=== PATIENT | female | born 1965 | race Caucasian/White ===

== ENCOUNTER → 2016-08-04 | Outpatient (CLI) | payer OTHER ==
[~2016-08-04] MED LIST: ALLEGRA180 MG PO; LASIX40 MG PO; NASACORT16.9 ML NOSE; NORCO 5-325 TA1 EACH PO; NORVASC10 MG PO; OMEGA RED PO; PREVACID15 MG PO
== END | disposition disaster alternative care site (69) ==
LOC: GRAD 08:06
DX: M54.12 Radiculopathy, cervical region (principal); M54.2 Cervicalgia; M25.70 Osteophyte, unspecified joint; M48.02 Spinal stenosis, cervical region; M50.222 Other cervical disc displacement at C5-C6 level

== ENCOUNTER 2016-09-29 06:07 | Day surgery (SDC) | payer OTHER ==
[~2016-09-29] VITALS: Ht 157.5 cm; Wt 99.7 kg
--- NOTE | ~2016-09-29 | OR ---
PATIENT'S NAME: JAMILAH BIRCH [facility] AGE: 50 Y [address] ROOM: [address] [address] [place] [facility] [place]: 09/29/2016 OR/Procedure Report DISCHARGE DATE: FAMILY PHYSICIAN: Sindy Snyder MD ATTENDING PHYSICIAN: Carol Bhandari SURGEON: Carol Bhandari MD MANAGER SIMULATION: Willow Infante CST. DATE OF PROCEDURE: 09/29/2016 PREOPERATIVE DIAGNOSIS: Cervical spondylosis with myelopathy. POSTOPERATIVE DIAGNOSIS: Cervical spondylosis with myelopathy. PROCEDURES PERFORMED: 1. Anterior cervical diskectomy with decompression of neural elements and foraminotomy at C5-6. 2. Anterior cervical diskectomy with decompression of neural elements and foraminotomy at C6-7. 3. Structural allograft and morselized allograft fusion at C5-C6. 4. Structural allograft and morselized allograft fusion at C6-7. 5. Use of [place] Elite plate from C5-C7. ANESTHESIA: General. ANESTHESIA PROVIDER: Vipin Glynn MD. HISTORY: This patient is a 50-year-old female who presented with neck pain and numbness going into her arms. She had a long history of neck pain with flare-ups. She had lost work due to the neck pain and was having more difficulty with pain control. Imaging studies showed cervical spinal cord compression at C5-C6 and C6-7. Clinically, the patient was myelopathy with increased reflexes. Surgery was therefore recommended. The above procedure along with the benefits and risks were discussed with the patient and her . With their consent, she was brought to the operating room for surgery today. PROCEDURE IN DETAIL: In the operating room, the patient was placed in a supine position. Anesthesia was induced. She was intubated. A Camacho catheter was inserted. The patient's head was placed in a gel donut and a roll was placed under her shoulders, placing her neck in extension. The incision line was marked out along the anterior border of the sternomastoid muscle and the whole area was prepped and draped in a sterile fashion. Local anesthesia was infiltrated along the incision line. The #10 blade was used to open the incision and to divide the platysma. Further dissection revealed the anterior border of the sternomastoid. Dissection continued along the anterior PATIENT'S NAME: JAMILAH BIRCH [facility] AGE: 50 Y [address] ROOM: [id number] [place] [id number] LOC[place] [facility] [place]: 09/29/2016 OR/Procedure Report DISCHARGE DATE: FAMILY PHYSICIAN: Sindy Snyder MD ATTENDING PHYSICIAN: Carol Bhandari border of the sternomastoid until the omohyoid muscle was seen. The space between the omohyoid and sternomastoid muscles was then explored and the incision was deepened using a plane that was medial to the carotid arteries and lateral to the esophagus and trachea. The [place] handheld retractors were used to facilitate vision. Dissection continued until we got to the anterior surface of the spine. There were two disk spaces that were abnormal and bulging out more than the others. These were turned out to be the disk spaces we were interested in i.e. C5-C6 and C6-C7. The longus colli muscles were undermined on both sides. Appropriate Managed Care Provider retractor length was selected and placed with the teeth under the longus colli muscles. Another set of retractors were placed in the cephalocaudal orientation. Intraoperative x-ray was obtained to confirm that was at the desired level. Diskectomy was then carried out at C5-C6 and C6-7. Disc material was incised with a 15 blade and pulled out with a pituitary rongeur. A curette was used to scrape out more disk material. The [place] distraction pins were used to open up the disk space and facilitate visualization. Microscope was brought in and under microscopic vision, the posterior osteophytes were drilled off. The posterior longitudinal ligament was opened. The posterior longitudinal ligament was exceedingly thick at the C5-C6 level and took a bit of work to be able to divide it safely and expose the dura. The same procedure was carried out at C6-7 i.e. division of the posterior longitudinal ligament. The [place] was then used to remove the last bits of osteophytes and posterior longitudinal ligament. Bilateral foraminotomies were carried out at both levels. The adjacent endplates at both disc spaces were then drilled down in preparation for fusion. Appropriate-sized pieces of allograft bone was selected and filled with demineralized bone matrix and then inserted into each disk space. We had a very good fit at both levels. Irrigation was used to wash out the debris and hemostasis was achieved. A metal plate by [employer] was used to reinforce the fusion. Two screws were affixed to C5, C6, and C7. Another x-ray was then obtained to confirm that the graft, screws, and plates were in satisfactory position. Irrigation was used to wash out the debris. The incision was closed in layers using appropriate suture materials. A sterile dressing was applied. Dermabond had been used to close the skin also. The patient's anesthesia was reversed. She was extubated and taken to the recovery room to complete her recovery. I was present at and performed every aspect of this procedure, assisted at some stages by operating room nurses. There were no apparent intraoperative complications. Swabs, needles, and instruments were all accounted for at the end of the case. Estimated blood loss was 100 mL. There was no reason for blood transfusion. I expect the patient to benefit from this procedure. PATIENT'S NAME: JAMILAH BIRCH [facility] AGE: 50 Y [address] ROOM: [place] [address] [place] [facility] [place]: 09/29/2016 OR/Procedure Report DISCHARGE DATE: FAMILY PHYSICIAN: Sindy Snyder MD ATTENDING PHYSICIAN: Carol Bhandari CAROL BHANDARI MD CNO/modl /[id number] CC: Sindy Snyder MD d: 09/29/16 1919 t: 10/02/16 2206, OPERATIVE SUMMARY
[~2016-09-29 06:07] MED LIST changes: -NORCO 5-325 TA1 EACH PO
[2016-09-30] MEDS ORDERED: NORCO 5-325 TA1 EACH PO (12:01)
== END 2016-09-30 12:15 | disposition disaster alternative care site (69) ==
LOC: GSDC 06:07 → G3N 06:07 → GMSU 12:53 → GSDC 13:00
PROC: 0RG20K0 Fusion of 2 or more Cervical Vertebral Joints with Nonautologous Tissue Substitute, Anterior Approach, Anterior Column, Open Approach (ICD-10-PCS; principal; 2016-09-29)
DX: M47.12 Other spondylosis with myelopathy, cervical region (principal); I10 Essential (primary) hypertension; E78.5 Hyperlipidemia, unspecified; K21.9 Gastro-esophageal reflux disease without esophagitis; G47.33 Obstructive sleep apnea (adult) (pediatric); Z88.1 Allergy status to other antibiotic agents; Z79.899 Other long term (current) drug therapy; Z98.890 Other specified postprocedural states
CPT/HCPCS: C1713; J1100; J2001; J2250; J2405; J3010; J3370; J7030

== ENCOUNTER → 2016-10-19 | Outpatient (CLI) | payer OTHER ==
[~2016-10-19] MED LIST changes: +NORCO 5-325 TA1 EACH PO
== END | disposition disaster alternative care site (69) ==
LOC: GRAD 08:46
DX: R74.8 Abnormal levels of other serum enzymes (principal); K76.0 Fatty (change of) liver, not elsewhere classified

== ENCOUNTER → 2016-10-25 | Outpatient (CLI) | payer OTHER | LOC: LFPA 16:22 | DX: K76.0 Fatty (change of) liver, not elsewhere classified (principal) ==